=== PATIENT | male | born 1990 | race Caucasian/White ===

== ENCOUNTER 2023-03-05 05:28 | Emergency (ER) | payer MEDICAID ==
[~2023-03-05] VITALS: Ht 182.9 cm; Wt 100.0 kg
[2023-03-05 05:34] VITALS: PULSE 103
[2023-03-05 05:45] VITALS: BP 132/85; RESP 18; TEMP 98.5; O2SAT 97
[2023-03-05] MEDS ORDERED: AMOX-494 MT (06:46)
== END 2023-03-05 07:53 | disposition home or self-care (01) ==
LOC: ER 05:52
DX: H66.93 Otitis media, unspecified, bilateral (principal); E11.9 Type 2 diabetes mellitus without complications; I10 Essential (primary) hypertension
CPT/HCPCS: 99283